=== PATIENT | male | born 1965 ===

== ENCOUNTER 2018-05-10 22:36 | Day surgery (SDC) | payer MEDICAID ==
[2018-05-10] MEDS ORDERED: Glucagon Recombinant 1 mg Inj IM STA (23:58)
[2018-05-11] MEDS ORDERED: Glucagon Recombinant 1 mg Inj ONE (00:01)
--- NOTE | 2018-05-11 00:37 | C.PDOC ---
History Of Present Illness <Alexander Choi R - Last Filed: 05/11/18 06:57> <FengEliane Coronado - Last Filed: 05/11/18 11:29> 52 y/o male presents to ED for complaints of having a piece of steak stuck in his esophagus COST RECORDER. Patient states he is unable to swallow saliva. Denies any other physical complaints. (ChoiAlexander Wellington) History Per: Patient History/Exam Limitations: no limitations Onset/Duration Of Symptoms: Hrs Current Symptoms Are (Timing): Still Present Recent travel outside of the [place]: No <Alexander Choi R - Last Filed: 05/11/18 06:57> <FengEliane Coronado - Last Filed: 05/11/18 11:29> Chief Complaint (Nursing): ENT Problem Past Medical History Reviewed: Historical Data, Nursing Documentation, Vital Signs - Medical History PMH: No Chronic Diseases Surgical History: No Surg Hx Family History: States: No Known Family Hx - Social History Hx Alcohol Use: No Hx Substance Use: No - Immunization History Hx Tetanus Toxoid Vaccination: No Hx Influenza Vaccination: No Hx Pneumococcal Vaccination: No <Alexander Choi R - Last Filed: 05/11/18 06:57> Vital Signs: Last Vital Signs Temp 98.1 F 05/11/18 10:30 Pulse 58 L 05/11/18 10:30 Resp 16 05/11/18 10:30 BP 130/85 05/11/18 10:30 Pulse Ox 98 05/11/18 10:30 Review Of Systems Constitutional: Negative for: Fever, Chills ENT: Positive for: Other (Piece of steak stuck in esophagus). Negative for: Throat Pain Respiratory: Negative for: Shortness of Breath Gastrointestinal: Negative for: Nausea, Vomiting, Abdominal Pain, Diarrhea Skin: Negative for: Rash Neurological: Negative for: Weakness, Numbness <Alexander Choi - Last Filed: 05/11/18 06:57> Physical Exam - Physical Exam Appears: Non-toxic, No Acute Distress Skin: Normal Color, Warm, Dry Head: Atraumatic, Normacephalic Eye(s): bilateral: Normal Inspection, PERRL, EOMI Nose: Normal, No Discharge Oral Mucosa: Moist Throat: No Erythema, No Exudate, No Drooling, Other (No swelling of throat noted ; Unable to swallow saliva; Piece of steak stuck in esophagus) Neck: Supple Chest: Symmetrical, No Tenderness Cardiovascular: Rhythm Regular, No Murmur Respiratory: Normal Breath Sounds, No Decreased Breath Sounds, No Rales, No Rhonchi, No Wheezing Gastrointestinal/Abdominal: Soft, No Tenderness Extremity: Normal ROM, No Deformity Extremity: Bilateral: Atraumatic, Normal Color And Temperature, Normal ROM Neurological/Psych: Oriented x3 (Awake and alert), Normal Speech (Speaking in full sentences), Other (No focal deficits ) Gait: Steady <Choi,Alexander R - Last Filed: 05/11/18 06:57> ED Course And Treatment - Laboratory Results Result Diagrams: 05/11/18 02:07 05/11/18 02:07 ECG: Interpreted By Me, Viewed By Me ECG Rhythm: Sinus Rhythm ECG Interpretation: Normal Interpretation Of ECG: NSR, normal tracings. Rate From EC O2 Sat by Pulse Oximetry: 98 (RA) Pulse Ox Interpretation: Normal - CT Scan/US CT Neck Soft Tissue Other Rad Studies (CT/US): Read By Radiologist, Radiology Report Reviewed CT/US Interpretation: EXAM: CT Neck Without Intravenous Contrast. CLINICAL HISTORY: 52 years old, male; Pain and signs and symptoms; Other: Vomiting; Painful. swallowing and throat pain; Additional info: Food obstruction/ inability to swallow fluid. TECHNIQUE: Axial computed tomography images of the neck without intravenous contrast. All CT. scans at this facility use at least one of these dose optimization techniques: automated exposure. control; mA and/ or kV adjustment per patient size (includes targeted exams where dose is matched to. clinical indication); or iterative reconstruction. Coronal and sagittal reformatted images were created. and reviewed. COMPARISON: No relevant prior studies available. FINDINGS: Oropharynx: Unremarkable. No significant tonsillar enlargement. Hypopharynx: Small amount of fluid in the posterior hypopharynx. Larynx: Unremarkable. Normal epiglottis. Trachea: Unremarkable. Retropharyngeal space: Unremarkable. Submandibular/parotid glands: Unremarkable. Glands are normal in size. Thyroid: Unremarkable. No enlarged or calcified nodules. Bones/joints: No acute fracture. Soft tissues: Unremarkable. Vasculature: No acute findings. Lymph nodes: Unremarkable. No lymphadenopathy. Esophagus: Fluid in the upper esophagus. There is a food bolus in the upper esophagus at the level. of the germán measuring 1.5 cm in diameter. Lung apices: Unremarkable as visualized. IMPRESSION: 1. Small amount of fluid in the posterior hypopharynx. 2. Fluid in the upper esophagus. There is a food bolus in the upper esophagus at the level of the. germán measuring 1.5 cm in diameter. This is only partially imaged and extends below the level of the. germán. <Alexander Choi R - Last Filed: 05/11/18 06:57> - Laboratory Results Result Diagrams: 05/11/18 02:07 05/11/18 02:07 <Eliane Toney - Last Filed: 05/11/18 11:29> Medical Decision Making <Alexander Choi - Last Filed: 05/11/18 06:57> <Eliane Toney - Last Filed: 05/11/18 11:29> Medical Decision Making: Administered Glyucagon. Ordered CT Neck&chest, Soft tissue and X-Ray of neck. 1:34AM: Spoke with Denise Nogueira, GI subcontracts manager. - Doctor stated he will see patient in ER in the Morning at 7am. 6:56AM: - Patient will be admitted under Denise Nogueira (Alexander Choi) Disposition Discussed With Dr.: Chelsey Nicholas Doctor Will See Patient In The: Hospital Counseled Patient/Family Regarding: Diagnosis - Disposition Disposition Time: 02:00 - POA Present On Arrival: None <Alexander Choi - Last Filed: 05/11/18 06:57> <Eliane Toney - Last Filed: 05/11/18 11:29> - Disposition Condition: STABLE - Clinical Impression Clinical Impression: Esophageal obstruction due to food impaction - Scribe Statement The provider has reviewed the documentation as recorded by the Scribe <Alexander Choi - Last Filed: 05/11/18 06:57> <Eliane Toney - Last Filed: 05/11/18 11:29> - Scribe Statement Elfego Kay All medical record entries made by the Scribe were at my direction and personally dictated by me. I have reviewed the chart and agree that the record accurately reflects my personal performance of the history, physical exam, medical decision making, and the department course for this patient. I have also personally directed, reviewed, and agree with the discharge instructions and disposition. (Alexander Choi) Addendum <Alexander Choi - Last Filed: 05/11/18 06:57> <Eliane Toney - Last Filed: 05/11/18 11:29> Addendum: 05/11/18 11:25 Patient was seen by Dr. Choi last night for food bolus impaction. Discussion with Dr Nicholas last night. Plan was for patient to go to Endo this morning. By time patient arrived to Endo, food bolus passed. See by Cristopher in Endo. I spoke with Dr. Nicholas , states patient dos not need procedure at this time. Will d/c and have patient follow up as outpatint. On exam: Patient awake, alert, tolerating PO. States at some point during the night the bolus was relieved. (Eliane Toney)
[2018-05-11] MEDS ORDERED: Sodium Chloride 0.9% 1,000 ML IV ONE (01:31)
[2018-05-11] MEDS ORDERED: Glucagon Recombinant 1 mg Inj IV STA (01:32)
[2018-05-11 02:13] LABS: BASO % 0.4 % (0.0-2.0); EOS # 0.1 K/uL (0.0-0.7); EOS % 1.2 % (0.0-4.0); HEMOGLOBIN 11.7 g/dL (12.0-18.0); LYMPH # 1.3 K/uL (1.0-4.3); LYMPH % 14.4 % (20.0-40.0); MEAN CELL VOLUME 83.6 fL (80.0-94.0); MEAN CORPUSCULAR HEMOGLOBIN 28.1 pg (27.0-31.0); MEAN CORPUSCULAR HGB CONC 33.6 g/dL (33.0-37.0); MEAN PLATELET VOLUME 7.4 fL (7.2-11.7); MONO # 0.5 K/uL (0.0-0.8); MONO % 5.2 % (0.0-10.0); NEUT # 7.3 K/uL (1.8-7.0); NEUT % 78.8 % (50.0-75.0); RBC 4.18 Mil/uL (4.40-5.90); RED CELL DISTRIBUTION WIDTH 14.1 % (11.5-14.5); WHITE BLOOD COUNT 9.3 K/uL (4.8-10.8)
[2018-05-11 02:30] LABS: CALCIUM 8.4 mg/dl (8.6-10.4); GFR AFRICAN-AMERICAN > 60; GFR NON-AFRICAN AMERICAN > 60
[2018-05-11 03:04] LABS: ALB/GLOB RATIO 1.4 (1.0-2.1); ALBUMIN 4.5 g/dL (3.5-5.0); ALT/SGPT 34 U/L (21-72); AST/SGOT 65 U/L (17-59); BLOOD UREA NITROGEN 14 mg/dL (9-20)
[2018-05-11 10:44] VITALS: O2SAT 98
--- NOTE | 2018-05-11 10:47 | RAD ---
PROCEDURE: Radiographs of the neck (soft tissue). HISTORY: R/O F.B. COMPARISON: None. TECHNIQUE: Frontal and Lateral Radiographs of the neck, optimized for soft tissue visualization. FINDINGS: SOFT TISSUES: Unremarkable. No radiopaque foreign body seen. CERVICAL SPINE: Grossly unremarkable. OTHER FINDINGS: None. IMPRESSION: Unremarkable radiographs of the soft tissues of the neck.
[2018-05-11 12:30] VITALS: BP 136/88; PULSE 56; RESP 18; TEMP 98.3
--- NOTE | 2018-05-11 12:45 | CP.PCM.CON ---
History of Present Illness - History of Present Illness History of Present Illness: GI Fellow PGY5 Consult Note This is a 52yM with no significant past medical history presenting with complaints of food stuck in his throat. Pt reports he was eating steak last night and immediately after swallowing felt like it got stuck in his throat. He reports feeling like he could not breathe or swallow his saliva so came to the ER. In the ER, pt had a CT Neck showing a food bolus. Pt was subsequently give three doses of IV Glucagon and IV Reglan. Pt reports by this am he felt better and did not have any sensation of food stick in his throat. He was able to drink a little water and swallow his saliva. Pt denies any prior episode of food bolus. No prior hx of EGD/Colonoscopy. He does have a hx of tobacco use and etoh use in the past. Denies any N/V, abdominal pain, dysphagia,odynophagia , or unintentional weightloss. ROS: A 12pt ROS was negative except as above. PmHX: As stated in HPI PsHX: Denies FHx: Father with throat cancer-hx of tobacco use, neg for colon cancer SHx: Hx of tobacco and etoh use Past Patient History - Past Social History Smoking Status: Never Smoked - PSYCHIATRIC Hx Substance Use: No - SURGICAL HISTORY Hx Surgeries: No Meds Allergies/Adverse Reactions: Allergies Allergy/AdvReac Type Severity Reaction Status Date / Time No Known Allergies Allergy Unverified 05/10/18 22:40 Physical Exam - Constitutional Appears: Non-toxic, No Acute Distress - Head Exam Head Exam: ATRAUMATIC, NORMAL INSPECTION, NORMOCEPHALIC - Eye Exam Eye Exam: EOMI, Normal appearance, PERRL Pupil Exam: PERRL - ENT Exam ENT Exam: Mucous Membranes Moist, Normal Exam - Neck Exam Neck exam: Positive for: Full Rom, Normal Inspection - Respiratory Exam Respiratory Exam: Clear to Auscultation Bilateral, NORMAL BREATHING PATTERN - Cardiovascular Exam Cardiovascular Exam: REGULAR RHYTHM, RRR, +S1, +S2 - GI/Abdominal Exam GI & Abdominal Exam: Normal Bowel Sounds, Soft. absent: Distended, Organomegaly , Tenderness - Rectal Exam Rectal Exam: Deferred - Extremities Exam Extremities exam: Positive for: full ROM, normal inspection - Back Exam Back exam: NORMAL INSPECTION - Neurological Exam Neurological exam: Alert, Oriented x3 - Psychiatric Exam Psychiatric exam: Normal Affect, Normal Mood - Skin Skin Exam: Dry, Intact, Normal Color, Warm Results - Vital Signs Recent Vital Signs: Last Vital Signs Temp 98.1 F 05/11/18 10:30 Pulse 58 L 05/11/18 10:30 Resp 16 05/11/18 10:30 BP 130/85 05/11/18 10:30 Pulse Ox 98 05/11/18 10:30 - Labs Result Diagrams: 05/11/18 02:07 05/11/18 02:07 Labs: Laboratory Results - last 24 hr 05/11/18 05/11/18 02:07 02:07 WBC 9.3 RBC 4.18 L Hgb 11.7 L Hct 34.9 L MCV 83.6 MCH 28.1 MCHC 33.6 RDW 14.1 Plt Count 274 MPV 7.4 Neut % (Auto) 78.8 H Lymph % (Auto) 14.4 L [place] % (Auto) 5.2 Eos % (Auto) 1.2 Baso % (Auto) 0.4 Neut # (Auto) 7.3 H Lymph # (Auto) 1.3 [place] # (Auto) 0.5 Eos # (Auto) 0.1 Baso # (Auto) 0.0 Sodium 141 Potassium 5.8 H Chloride 109 H Carbon Dioxide 22 Anion Gap 16 BUN 14 Creatinine 0.7 L Est GFR ( Amer) > 60 Est GFR (Non-Af Amer) > 60 Random Glucose 101 Calcium 8.4 L Total Bilirubin 1.5 H AST 65 H ALT 34 Alkaline Phosphatase 49 Total Protein 7.8 Albumin 4.5 Globulin 3.3 Albumin/Globulin Ratio 1.4 Assessment & Plan - Assessment and Plan (Free Text) Assessment: This is a 52yM with no significant past medical history presenting with food stuck in his throat. 1. Food bolus 2. Anemia 3. Hx of tobacco/etoh use Plan: -Continue supportive acre -CT imaging reviewed with food bolus -Pt given IV Glucagon and Reglan and pt has passed food bolus -Clinically pt stable with no signs or symptoms of obstruction, pt clearing saliva, able to swallow, able to drink water with no complaints -No indication for urgent EGD at tis time -Recommend liquid diet, advance to soft diet for a 2-3 days before resuming a regular diet -Pt will need outpt workup with EGD and colonoscopy in setting of recent food bolus and anemia -Outpt EGD to r/o EOE and Colonoscopy for CRC screening -Discussed with pt and given contact number for Dr. Nicholas -Datay to discharge pt and followup with GI as an outpt -Please call with any question or concerns
--- NOTE | 2018-05-11 14:50 | CT ---
PROCEDURE: CT NECK WITHOUT CONTRAST HISTORY: food obstruction/ inability to swallow fluid. COMPARISON: None. TECHNIQUE: CT of the neck without intravenous contrast. Coronal and sagittal reformats generated. Radiation dose: DLP 584.77 mGy-cm This CT exam was performed using one or more of the following dose reduction techniques: Automated exposure control, adjustment of the mA and/or kV according to patient size, and/or use of iterative reconstruction technique. FINDINGS: NASOPHARYNX: Unremarkable. SUPRAHYOID NECK: Unremarkable oropharynx, oral cavity, parapharyngeal space and retropharyngeal space. INFRAHYOID NECK: Unremarkable larynx, hypopharynx, and supraglottic space. Vocal cords intact. MASS: None. GLANDS: Parotid and submandibular glands unremarkable. Normal size thyroid gland, without nodule. LYMPH NODES: Normal. No lymphadenopathy. CERVICAL SPINE: Mild multilevel degenerative disc disease C5-6 and C6-7. Reversal of normal lordotic curvature of the cervical spine, nonspecific. OTHER FINDINGS: There is dependent fluid seen in the pharynx at the level of the piriform sinuses. There is an air-fluid level seen within the superior esophagus as well as a fluid bolus in the esophagus continuing to the level of the germán, being the most caudal level evaluated in this examination. The extent of this food boluses not evident from this examination. These findings are concerning for distal esophageal stricture or obstruction. Further evaluation is advised. IMPRESSION: Fluid and food within the esophagus. Small amount of dependent fluid within the oropharynx. The finding of retained food and fluid within the esophagus raises concern for distal esophageal stricture or neoplasm. Further evaluation advised. Preliminary interpretation of this examination was reported by [facility] at 12:52 a.m. on 05/11/2018. There is concurrence of this report with the preliminary interpretation.
--- NOTE | 2018-05-11 23:21 | CARD ---
APPROVED REPORT EKG Measurement Heart [id number] <Conclusion> Normal sinus rhythm Normal ECG
== END 2018-05-11 | disposition home or self-care (01) ==
LOC: C.ER 22:36 → C.SDS 05-11 07:17
PROVIDERS: ATTEND Specialist
DX: T18.128A Food in esophagus causing other injury, initial encounter (principal); X58.XXXA Exposure to other specified factors, initial encounter; D64.9 Anemia, unspecified; Z87.891 Personal history of nicotine dependence; Z53.8 Procedure and treatment not carried out for other reasons
CPT/HCPCS: 70360; 70490; 80053; 85025; 93005; 96372; 99285; J1610; J2765; J7030